=== PATIENT | female | born 1975 | race Caucasian/White ===

== ENCOUNTER 2016-10-17 04:27 | Emergency (ER) | payer MEDICAID, OTHER ==
[~2016-10-17] VITALS: Ht 154.9 cm; Wt 65.0 kg
[2016-10-17 04:29] VITALS: Ht 154.9 cm; Wt 65.0 kg
--- NOTE | 2016-10-17 04:46 | ERD ---
ER Documentation Chief Complaint Date/Time DATE: 10/17/16 TIME: 04:45 Chief Complaint Cockroach in the right ear (ARCADIO COTO PA-C) HPI 41-year-old female presents with foreign body sensation, she states that she has a cockroach in her right ear that woke her up out of sleep today. (ARCADIO COTO PA-C) ROS All systems reviewed and are negative except as per history of present illness. (ARCADIO COTO PA-C) Medications Home Meds Active Scripts Ofloxacin Otic (Ofloxacin Otic) 5 Ml Drops, 5 DROP RIGHT EAR BID for 7 Days, #1 BOTTLE Prov:ARCADIO COTO PA-C 10/17/16 Allergies Allergies: Coded Allergies: No Known Allergy (Unverified , 10/17/16) Physical Exam Vitals Vital Signs Date Time Temp Pulse Resp B/P Pulse Ox O2 Delivery O2 Flow Rate FiO2 10/17/16 04:29 98.5 88 20 12/80 100 (SHAKILA TEMPLE PA-C) Physical Exam General: Well-developed, well-nourished. The patient appears in no acute distress. HEENT: Head is normocephalic, atraumatic. No scleral icterus. Cockroach seen in the right ear canal. Neck: Supple. Nontender. Lungs: Clear to auscultation. Normal air movement. Heart: Regular rate and rhythm. S1 and S2 are normal. No murmurs, gallops, or rubs. Abdomen: Nondistended. Extremities: No clubbing or cyanosis. Moving extremities x 4. No weakness. Neurologic: Alert and oriented 3. No focal deficits. Normal speech and gait. Skin: Normal turgor. No rash or lesions. (ARCADIO COTO PA-C) Results 24 hrs Current Medications Medications (Trade) Dose Ordered Sig/Julianne Route PRN Reason Start Time Stop Time Status Last Admin Dose Admin Lidocaine (Xylocaine (Viscous)) 15 ml ONCE ONCE PO 10/17/16 05:00 10/17/16 05:01 DC 10/17/16 04:40 (SHAKILA TEMPLE PA-C) Procedures/MDM ED course: Viscous lidocaine is applied in the ear canal. Multiple times for use with the forceps as well as irrigation, however the insect appears to be large and in the posterior aspect of the ear canal. At this point I called ENT specialist, Dr. Leiva, who agreed to come to the emergency department for removal. 41-year-old female presents with a foreign body in the right ear, it appears to be a cockroach versus large insect. It is very posterior, enlarged therefore ENT was consulted. Patient's care and further evaluation will be signed out to Shakila Temple PAC and supervising ER physician. (ARCADIO COTO PA-C) Patient seen and evaluated by ENT specialist, Dr. Leiva, who performed total foreign body removal without complication. Tympanic membrane in tact post procedure. Patient provided with ofloxacin otic drops and instructed to follow-up with PCP. Based on patient's history of present illness and physical examination the decision was made to discharge. The patient was re-evaluated after ED treatment and stabilizing measures, and symptoms have improved. There is no evidence of life threatening injuries or illnesses at this time. On re-examination, patient resting in no distress, stable vital signs, reports feeling better and safe for discharge with outpatient follow up with PMD in 1-2 days. Patient given return precautions. (SHAKILA TEMPLE PA-C) Departure Diagnosis: Primary Impression: Foreign body in ear Encounter type: initial encounter Laterality: right Qualified Code: T16.1XXA - Foreign body in ear, right, initial encounter Condition: Good ARCADIO COTO PA-C Oct 17, 2016 04:46 SHAKILA TEMPLE PA-C Oct 17, 2016 06:54
[2016-10-17] MEDS ORDERED: LIDOCAINE 2% VISC 15 ML CUP PO ONE (05:00)
[2016-10-17] MEDS ORDERED: OFLO5DRO7 RIGHT EAR (05:35)
[2016-10-17 06:56] VITALS: BP 122/65; PULSE 74; RESP 19; TEMP 98.3
--- NOTE | 2016-10-17 07:01 | CONS ---
Date/Time of Note Date/Time of Note PEDIATRIC ENT/HEAD & NECK SURGERY ED CONSULTATION AND PROCEDURE NOTE ASSESSMENT: Foreign body Right external ear canal (flying insect)--completely removed (see note below) with mild irritation of EAC RECOMMENDATIONS: Ofloxacin otic drops in right ear TID x 3 days. No followup needed. She should return here or to PMD if develops otalgia. REASON FOR CONSULTATION: Called by ED staff to see this 41 y.o. woman with a foreign body in her right ear HISTORY OF PRESENT ILLNESS: Patient states that she awoke early this AM with an insect moving in her right ear which was quite painful. [facility] where foreign body was noted in the ear and attempts were made to remove it unsuccessfully and I was called. ALLERGIES: NO MEDICATION ALLERGIES. PAST MEDICAL HISTORY: No bleeding history. No prior hospitalizations or surgeries. PHYSICAL EXAMINATION: GENERAL: Well-developed, well-nourished woman holding a towel to her right ear in mild pain. HEAD: Normocephalic. Ears: Left Auricle, ear canal and TM normal, middle ear clear Right Auricle nl, ear canal contains black insect and its parts wedged tightly against the TM and in the anterior sulcus EYES: Grossly normal. NOSE: Clear without exhudate, polyp or masses. OROPHARYNX: Normal. Palate normal. Tonsils 2+ bilaterally not inflamed NECK: No masses, adenopathy, or thyromegaly. PROCEDURE PERFORMED: Binocular microscopy with removal of foreign body from right external ear canal Performed at the bedside Performed by me, Dr. Geronimo, using binocular microscopy and combination of small ear suction, small hook and ear forcesps atraumatically. The foreign body was gently removed piecemeal although the bulk was recognizable as a large flying insect and this was shown to the patient. Afterwards, I gently irrigated the ear canal with warm saline and suctioned it clear and satisfied myself that all pieces of foreign body was removed. The TM is intact, normal and the EAC is not significantly abraded. There was no bleeding. The patient tolerated this procedure nicely and was very grateful. Complications: none EBL: none DATE: 10/17/16 TIME: 06:48 JARETT GERONIMO MD Oct 17, 2016 07:01
== END 2016-10-17 06:56 | disposition home or self-care (01) ==
LOC: FTE 04:27
DX: T16.1XXA Foreign body in right ear, initial encounter (principal); X58.XXXA Exposure to other specified factors, initial encounter; Y92.9 Unspecified place or not applicable
CPT/HCPCS: 69200; Z7610

== ENCOUNTER 2018-10-05 20:02 | Emergency (ER) | payer MEDICAID ==
[~2018-10-05] VITALS: Wt 67.6 kg
[~2018-10-05 20:02] MED LIST: OFLO5DRO7 RIGHT EAR
[2018-10-06] MEDS ORDERED: DIPHENHYDRAMINE 50 MG CAP PO ONE
[2018-10-06] MEDS ORDERED: predniSONE 20 MG TAB PO ONE
--- NOTE | 2018-10-06 00:22 | ERD ---
ER Documentation Chief Complaint Chief Complaint body rash x 3 days HPI 43-year-old female, healthy, presents to the emergency department, along with her , both complaining of erythematous and pruritic rash after cutting cactuses 3 days ago. Both were together gardening. The patient denies fevers, no chills, no shortness of breath, no leg swelling, her rash is worse in the lower extremities. ROS All systems reviewed and are negative except as per history of present illness. Medications Home Meds Active Scripts Triamcinolone Acetonide (Triamcinolone Acetonide) 0.1% - 60 Ml Lotion, 1 APPLIC TOP BID for 7 Days, #1 BOTTLE Prov:INESSA ALLEN MD 10/06/18 Diphenhydramine Hcl* (Benadryl*) 25 Mg Cap, 25 MG PO Q6 PRN for ITCHING/RASH, #20 TAB Prov:INESSA ALLEN MD 10/06/18 Prednisone* (Prednisone*) 20 Mg Tab, 40 MG PO DAILY for 4 Days, TAB Prov:INESSA ALLEN MD 10/06/18 Ofloxacin Otic (Ofloxacin Otic) 5 Ml Drops, 5 DROP RIGHT EAR BID for 7 Days, #1 BOTTLE Prov:ARCADIO COTO PA-C 10/17/16 Allergies Allergies: Coded Allergies: No Known Allergy (Unverified , 10/17/16) PMhx/Soc Medical and Surgical Hx: pt denies Medical Hx, pt denies Surgical Hx Hx Alcohol Use: No Hx Substance Use: No Hx Tobacco Use: No Smoking Status: Never smoker FmHx Family History: No diabetes, No coronary disease Physical Exam Vitals Vital Signs Date Temp Pulse Resp B/P (MAP) Pulse Ox O2 O2 Flow FiO2 Time Delivery Rate 10/06/18 98.0 61 18 141/61 100 Room Air 00:40 (87) 10/05/18 98.4 64 18 161/65 100 20:36 (97) Physical Exam Const: No acute distress Head: Atraumatic Eyes: Normal Conjunctiva ENT: Normal External Ears, Nose and Mouth. Neck: Full range of motion. No meningismus. Resp: Clear to auscultation bilaterally Cardio: Regular rate and rhythm, no murmurs Abd: Soft, non tender, non distended. Normal bowel sounds Skin: Bilateral lower extremities with erythematous, micropapular rash. Back: No midline or flank tenderness Ext: No cyanosis, or edema Neur: Awake and alert Psych: Normal Mood and Affect Results 24 hrs Current Medications Medications Dose Sig/Julianne Start Time Status Last (Trade) Ordered Route PRN Stop Time Admin Dose Reason Admin 50 mg ONCE ONCE 10/06/18 DC 10/05/18 Diphenhydrami PO 00:00 23:57 ne HCl 10/06/18 00:01 (Benadryl) Prednisone 60 mg ONCE ONCE 10/06/18 DC 10/05/18 (Prednisone) PO 00:00 23:57 10/06/18 00:01 Procedures/MDM Vital signs stable, Differential diagnosis include but not limited to: Heat rash, contact dermatitis, viral exanthema, seborrheic dermatitis, scabies, acute allergic reaction, medication side effect. low suspicion for systemic infectious process, angioedema, anaphylactic shock. Physical examination and clinical presentation consistent most likely with acute allergic dermatitis. Results and clinical impression discussed with the patient who agree with management. The patient is stable to be treated outpatient and will be discharged home with a Rx for topical mild potency steroids, some side effects of prescribed medications (skin atrophy, nausea, vomiting, diarrhea, interactions with other medications) were reviewed. The patient needs a follow up with the primary care provider in the next 48h. If symptoms persist, worsen or new symptoms develop, then patient should return to the ED immediately. Instructions explained and given directly by me with acknowledgment and demonstrated understanding. Disclaimer: Inadvertent spelling and grammatical errors are likely due to EHR/dictation software use and do not reflect on the overall quality of patient care. Also, please note that the electronic time recorded on this note does not necessarily reflect the actual time of the patient encounter. Departure Diagnosis: Primary Impression: Contact dermatitis Condition: Stable Patient Instructions: Contact Dermatitis Additional Instructions: Muchas jair por [facility] para carpenter servicio. Esperamos que en carpenter visita a la mike de emergencia carpenter problema medico haya sido solucionado y que se sienta mucho mejor. Para estar seguros que carpenter mejoria sigue en proceso, le pedimos el favor de hacer noe gregorio de seguimiento medico con carpenter doctor primario en los proximos 2-4 allen. Lleve con usted estos documentos y las medicinas recetadas. Si roxanna sintomas empeoran, NO SE ESPERE, por favor regrese a mike de emergencia INMEDIATAMENTE. En gisella que usted no tenga un mdico de atencin primaria: Llame al mdico o clnica comunitaria de referencia que aparece abajo reese las horas de consultorio para hacer noe gregorio para que le vean. CLINICAS: [facility] [phone] [address] [facility] [phone] [address] [facility] [phone] [address] [facility] [phone] [address] [place] [id number] [phone] [facility] [phone] INESSA SALGADO MD Oct 06, 2018 00:22
[2018-10-06] MEDS ORDERED: TR1B60 TOP (00:23)
[2018-10-06] MEDS ORDERED: PRED20TA PO (00:23)
[2018-10-06] MEDS ORDERED: BEN25 PO (00:23)
[2018-10-06 00:40] VITALS: BP 141/61; PULSE 61; RESP 18
== END 2018-10-06 00:40 | disposition home or self-care (01) ==
LOC: FTE 20:02
DX: L25.9 Unspecified contact dermatitis, unspecified cause (principal)
CPT/HCPCS: J7512; Z7502; Z7610; 99283

== ENCOUNTER 2018-10-30 03:24 | Emergency (ER) | payer MEDICAID ==
[~2018-10-30] VITALS: Ht 157.5 cm; Wt 67.7 kg
[~2018-10-30 03:24] MED LIST changes: +BEN25 PO; +PRED20TA PO; +TR1B60 TOP
[2018-10-30 03:30] VITALS: BP 165/72; PULSE 61; RESP 18; Ht 157.5 cm; Wt 67.7 kg
[2018-10-30] MEDS ORDERED: BEN25 PO (07:22)
[2018-10-30] MEDS ORDERED: PRED20TA PO (07:22)
--- NOTE | 2018-10-30 07:25 | ERD ---
ER Documentation Chief Complaint Chief Complaint redness around both eyes since yesterday from using new mascara/make up HPI This is a 43-year-old female who presents to the emergency room for evaluation of allergic reaction. She does state that she used a cucumber facemask and noticed some swelling and itching around her left eyes. The patient states he does not have any known allergies and does not take any medications for her symptoms. She came to the ER today for evaluation denies any blurred vision. The patient denies any discharge from the eyes. ROS All systems reviewed and are negative except as per history of present illness. Medications Home Meds Active Scripts Diphenhydramine Hcl* (Benadryl*) 25 Mg Cap, 25 MG PO Q6 PRN for ITCHING/RASH, #30 TAB Prov:THA BOATENG DO 10/30/18 Prednisone* (Prednisone*) 20 Mg Tab, 40 MG PO DAILY for 4 Days, TAB Prov:THA BOATENG DO 10/30/18 Triamcinolone Acetonide (Triamcinolone Acetonide) 0.1% - 60 Ml Lotion, 1 APPLIC TOP BID for 7 Days, #1 BOTTLE Prov:INESSA ALLEN MD 10/06/18 Diphenhydramine Hcl* (Benadryl*) 25 Mg Cap, 25 MG PO Q6 PRN for ITCHING/RASH, #20 TAB Prov:INESSA ALLEN MD 10/06/18 Prednisone* (Prednisone*) 20 Mg Tab, 40 MG PO DAILY for 4 Days, TAB Prov:INESSA ALLEN MD 10/06/18 Ofloxacin Otic (Ofloxacin Otic) 5 Ml Drops, 5 DROP RIGHT EAR BID for 7 Days, #1 BOTTLE Prov:ARCADIO COTO PA-C 10/17/16 Allergies Allergies: Coded Allergies: No Known Allergy (Unverified , 10/17/16) PMhx/Soc Hx Alcohol Use: No Hx Substance Use: No Hx Tobacco Use: No Physical Exam Vitals Vital Signs Date Temp Pulse Resp B/P (MAP) Pulse Ox O2 O2 Flow FiO2 Time Delivery Rate 10/30/18 97.6 61 18 165/72 99 03:30 (103) Physical Exam Const: No acute distress Head: Atraumatic Eyes: Mild soft tissue swelling of the left periorbital area with no overlying erythema or signs of cellulitis, mild conjunctival injection bilaterally, no ecchymosis, extraocular muscles intact ENT: Normal External Ears, Nose and Mouth. Neck: Full range of motion. No meningismus. Resp: Clear to auscultation bilaterally Cardio: Regular rate and rhythm, no murmurs Abd: Soft, non tender, non distended. Normal bowel sounds Skin: No petechiae or rashes Back: No midline or flank tenderness Ext: No cyanosis, or edema Neur: Awake and alert Psych: Normal Mood and Affect Procedures/MDM This 43-year-old female presents to the emergency room for evaluation of reaction. The patient has no signs of anaphylaxis and does have mild. Orbital swelling on the left worse than the right. She does not have any signs of periorbital cellulitis does not be signs of ocular impingement. She has no blurred vision and no discharge from the eye. The patient did use a new cucumber mask and will benefit from a short course of prednisone and Benadryl for localized allergic reaction. She was given strict return precautions and does verbalize understanding. Departure Diagnosis: Primary Impression: Allergic reaction Condition: Stable Patient Instructions: Allergic Reaction, Other (General) Referrals: [facility] YOU HAVE RECEIVED A MEDICAL SCREENING EXAM AND THE RESULTS INDICATE THAT YOU DO NOT HAVE A CONDITION THAT REQUIRES URGENT TREATMENT IN THE EMERGENCY DEPARTMENT. FURTHER EVALUATION AND TREATMENT OF YOUR CONDITION CAN WAIT UNTIL YOU ARE SEEN IN YOUR DOCTORS OFFICE WITHIN THE NEXT 1-2 DAYS. IT IS YOUR RESPONSIBILITY TO MAKE AN APPOINTMENT FOR FOLOW-UP CARE. IF YOU HAVE A PRIMARY DOCTOR --you should call your primary doctor and schedule an appointment IF YOU DO NOT HAVE A PRIMARY DOCTOR YOU CAN CALL OUR PHYSICIAN REFERRAL HOTLINE AT IF YOU CAN NOT AFFORD TO SEE A PHYSICIAN YOU CAN CHOSE FROM THE FOLLOWING [facility] [address] [facility] [address] [facility] [facility] [address] [facility] [address] [facility]. [facility] [address] [facility]. [facility]. [address] [facility]. [facility] YOU HAVE RECEIVED A MEDICAL SCREENING EXAM AND THE RESULTS INDICATE THAT YOU DO NOT HAVE A CONDITION THAT REQUIRES URGENT TREATMENT IN THE EMERGENCY DEPARTMENT. FURTHER EVALUATION AND TREATMENT OF YOUR CONDITION CAN WAIT UNTIL YOU ARE SEEN IN YOUR DOCTORS OFFICE WITHIN THE NEXT 1-2 DAYS. IT IS YOUR RESPONSIBILITY TO MAKE AN APPOINTMENT FOR FOLOW-UP CARE. IF YOU HAVE A PRIMARY DOCTOR --you should call your primary doctor and schedule and appointment IF YOU DO NOT HAVE A PRIMARY DOCTOR YOU CAN CALL OUR PHYSICIAN REFERRAL HOTLINE AT . IF YOU CAN NOT AFFORD TO SEE A PHYSICIAN YOU CAN CHOSE FROM THE FOLLOWING [facility] INSTITUTIONS: [facility] [address] [place] [address] [facility] [address] [place], [place] [id number] [place] [address] [address] [place] [address] Additional Instructions: Llame al doctor MAANA y carmine noe NAOMIE PARA DENTRO DE 1-2 PLATA.Dgale a la secretaria que nosotros le instruimos hacer esta naomie.Avise o llame si carpenter condicin se empeora antes de la naomie. Regresa aqui si peor o no mejor. THA BOATENG DO Oct 30, 2018 07:25
== END 2018-10-30 07:25 | disposition home or self-care (01) ==
LOC: E/R 03:24
DX: L29.9 Pruritus, unspecified (principal)
CPT/HCPCS: 99283